=== PATIENT | female | born 2000 | race Caucasian/White ===

== ENCOUNTER 2019-01-24 21:47 | Emergency (ER) | payer MEDICAID ==
[~2019-01-24] VITALS: Ht 165.1 cm; Wt 139.5 kg
[2019-01-24 21:52] VITALS: Ht 165.1 cm; Wt 139.5 kg
[2019-01-24] MEDS ORDERED: LAMICTAL150 M1 PO (21:53)
[2019-01-24] MEDS ORDERED: NASAL SPRAY (21:53)
[2019-01-24] MEDS ORDERED: ALBUTEROL SULF8.5 GM (21:54)
[2019-01-24] MEDS ORDERED: VITAMIN D5000 UNIT PO (21:54)
[2019-01-24 22:44] VITALS: BP 137/78
== END 2019-01-24 22:45 | disposition home or self-care (01) ==
LOC: D.ER 21:47
DX: S93.402A Sprain of unspecified ligament of left ankle, initial encounter (principal); W18.31XA Fall on same level due to stepping on an object, initial encounter; Y93.89 Activity, other specified; Y92.019 Unspecified place in single-family (private) house as the place of occurrence of the external cause